=== PATIENT | male | born 1985 | race African-American/Black ===

== ENCOUNTER 2017-01-21 15:47 | Emergency (ER) | payer BC, MEDICAID ==
[~2017-01-21] VITALS: Ht 182.9 cm; Wt 109.1 kg
[~2017-01-21 15:47] MED LIST: NAPR550 PO
[2017-01-21 15:54] VITALS: BP 169/77; PULSE 63; RESP 18; TEMP 97.9; O2SAT 98
[2017-01-21 15:57] VITALS: O2SAT 98
[2017-01-21] MEDS ORDERED: SODIUM CHLORIDE 0.9% FLUSH 5 ML FLUSH IVF PRN (16:00)
[2017-01-21] MEDS ORDERED: LORazepam 2 MG/ML VIAL IV PUSH ONE (16:00)
--- NOTE | 2017-01-21 16:00 | PD ---
HPI . Chest pain Chief Complaint: Chest Pain Time Seen by Provider: 15:51 Travel History International Travel<30 days: No Contact w/Intl Traveler<30days: No Traveled to known affect area: No History of Present Illness HPI Patient presents with about a one-week history of chest pain. He reports that it has been continuous. It is associated with a numb sensation in his left shoulder and neck. He states he had some nausea and vomiting with it this morning. He has not had any shortness of breath. Patient reports that he could be under a lot of stress because his mother just . [facility] Past Medical History Immunizations Current: Yes Social History Alcohol Use: Yes (1 PINT EOD) Tobacco Use: Yes (1 PPD) Substance Use: No Allergies-Medications (Allergen,Severity, Reaction): Coded Allergies: No Known Allergies (Verified , 06/18/15) Reported Meds & Prescriptions Reported Meds & Active Scripts Active No Active Prescriptions or Reported Medications Review of Systems Except as stated in HPI: all other systems reviewed are Neg General / Constitutional: No: Fever, Chills HENT: No: Headaches Cardiovascular: Positive: Chest Pain or Discomfort Respiratory: No: Shortness of Breath Gastrointestinal: Positive: Nausea, Vomiting Psychiatric: Positive: Other (stress) Physical Exam Narrative GENERAL: Healthy-appearing man in no acute distress. SKIN: Warm and dry. HEAD: Atraumatic. Normocephalic. EYES: Pupils equal and round. ENT: No nasal bleeding or discharge. Mucous membranes pink and moist. NECK: Trachea midline. Neck is supple. CARDIOVASCULAR: Regular rate and rhythm. Heart sounds are normal. RESPIRATORY: No accessory muscle use. Lungs are clear with air movement throughout. Chest wall is nontender. GASTROINTESTINAL: Abdomen soft, non-tender, nondistended. MUSCULOSKELETAL: No obvious deformities. No edema. NEUROLOGICAL: Awake and alert. No obvious cranial nerve deficits. Motor grossly within normal limits. Normal speech. PSYCHIATRIC: Appropriate mood and affect; insight and judgment normal. Data Data Last Documented VS Vital Signs Date Time Temp Pulse Resp B/P Pulse Ox O2 Delivery O2 Flow Rate FiO2 01/21/17 15:57 98 Room Air 01/21/17 15:54 97.9 63 18 169/77 Orders Electrocardiogram (01/21/17 15:51) Basic Metabolic Panel (Bmp) (01/21/17 15:51) Ckmb (Isoenzyme) Profile (01/21/17 15:51) Complete Blood Count With Diff (01/21/17 15:51) Magnesium (Mg) (01/21/17 15:51) Prothrombin Time / Inr (Pt) (01/21/17 15:51) Act Partial Throm Time (Ptt) (01/21/17 15:51) Troponin I (01/21/17 15:51) Chest, Single Ap (01/21/17 15:51) Ecg Monitoring (01/21/17 15:51) Bilateral Bp Monitoring (01/21/17 15:51) Iv Access Insert/Monitor (01/21/17 15:51) Oximetry (01/21/17 15:51) Oxygen Administration (01/21/17 15:51) Sodium Chloride 0.9% Flush (Ns Flush) (01/21/17 16:00) Lorazepam Inj (Ativan Inj) (01/21/17 16:00) CKMB (01/21/17 16:13) CKMB% (01/21/17 16:13) Labs Laboratory Tests Test 01/21/17 16:13 White Blood Count 4.9 TH/MM3 Red Blood Count 5.07 MIL/MM3 Hemoglobin 13.9 GM/DL Hematocrit 42.7 % Mean Corpuscular Volume 84.1 FL Mean Corpuscular Hemoglobin 27.4 PG Mean Corpuscular Hemoglobin 32.5 % Concent Red Cell Distribution Width 13.0 % Platelet Count 255 TH/MM3 Mean Platelet Volume 8.4 FL Neutrophils (%) (Auto) 57.8 % Lymphocytes (%) (Auto) 30.0 % Monocytes (%) (Auto) 9.5 % Eosinophils (%) (Auto) 1.2 % Basophils (%) (Auto) 1.5 % Neutrophils # (Auto) 2.7 TH/MM3 Lymphocytes # (Auto) 1.5 TH/MM3 Monocytes # (Auto) 0.5 TH/MM3 Eosinophils # (Auto) 0.1 TH/MM3 Basophils # (Auto) 0.1 TH/MM3 CBC Comment DIFF FINAL Differential Comment Prothrombin Time 10.4 SEC Prothromb Time International 0.9 RATIO Ratio Activated Partial 27.2 SEC Thromboplast Time Sodium Level 140 MEQ/L Potassium Level 4.1 MEQ/L Chloride Level 103 MEQ/L Carbon Dioxide Level 28.5 MEQ/L Anion Gap 9 MEQ/L Blood Urea Nitrogen 20 MG/DL Creatinine 1.30 MG/DL Estimat Glomerular Filtration 79 ML/MIN Rate Random Glucose 88 MG/DL Calcium Level 9.2 MG/DL Magnesium Level 2.4 MG/DL Total Creatine Kinase 550 U/L Creatine Kinase MB 4.9 NG/ML Creatine Kinase MB % 0.9 % Troponin I LESS THAN 0.02 NG/ML MDM Medical Decision Making Medical Screen Exam Complete: Yes Emergency Medical Condition: Yes Medical Record Reviewed: Yes (patient has been seen here a couple of times for chest pain.) Interpretation(s) EKG shows a sinus rhythm with an early repolarization pattern. The EKG is unchanged from previous. Differential Diagnosis Differential diagnosis of chest pain includes but is not limited to musculoskeletal pain, pulmonary embolism, acute coronary syndrome, pneumonia, pleurisy Narrative Course Patient presents for evaluation of chest pain. CBC & BMP Diagram 01/21/17 16:13 Total CK is 550, CK-MB is 4.9 and the relative index is 0.9. His troponin is less than 0.02. Last Impressions Chest X-Ray 01/21/17 2257 Signed Impressions: Service Date/Time: Saturday, January 21, 2017 16:09 - CONCLUSION: No acute cardiopulmonary abnormality is identified. Ruy Weaver MD The chest x-ray was independently viewed by me. The patient's chest pain is likely stress related. Patient reports that the symptoms are improved with Ativan. Diagnosis Primary Impression: Chest pain Qualified Code: R07.9 - Chest pain, unspecified type Patient Instructions: Chest Pain (DC), General Instructions Scripts Lorazepam (Ativan)1 Mg Tab1 Mg PO Q4H PRN (for severe anxiety or dyspnea) #10 TAB Ref 0 Prov:Nery Geller MD 01/21/17 Disposition: 01 DISCHARGE HOME Condition: Stable Nery Geller MD Jan 21, 2017 15:59
--- NOTE | 2017-01-21 16:16 | RADHPO ---
EXAM DATE/TIME: 01/21/2017 16:09 [facility] COMPARISON: CHEST PA & LAT, June 18, 2015, 15:47. INDICATIONS : Chest pain for 1 week. MEDICAL HISTORY : None. SURGICAL HISTORY : None. ENCOUNTER: Initial ACUITY: 1 week PAIN SCORE: 4/10 LOCATION: Bilateral chest FINDINGS: Portable AP view of the chest demonstrates a normal-sized cardiac silhouette. No effusion, consolidat ion, or pneumothorax is visualized. The bones and soft tissues demonstrate no acute abnormality. CONCLUSION: No acute cardiopulmonary abnormality is identified. Ruy Weaver MD on January 21, 2017 at 16:14 Board Certified Radiologist. This report was verified electronically.
[2017-01-21 16:18] LABS: AUTOMATED NEUTROPHIL # 2.7 TH/MM3 (1.8-7.7); BASOPHIL # 0.1 TH/MM3 (0-0.2); BASOPHIL % 1.5 % (0.0-2.0); EOSINOPHIL # 0.1 TH/MM3 (0-0.4); EOSINOPHIL % 1.2 % (0.0-4.0); HEMATOCRIT 42.7 % (39.0-51.0); HEMO FLAGS DIFF FINAL; LYMPHOCYTE # 1.5 TH/MM3 (1.0-4.8); MEAN CELL VOLUME 84.1 FL (80.0-100.0); MEAN CORPUSCULAR HEMOGLOBIN 27.4 PG (27.0-34.0); MEAN CORPUSCULAR HGB CONC 32.5 % (32.0-36.0); MONO % 9.5 % (0.0-8.0); NEUT % 57.8 % (16.0-70.0); PLATELET COUNT 255 TH/MM3 (150-450); RED BLOOD COUNT 5.07 MIL/MM3 (4.50-5.90); WHITE BLOOD COUNT 4.9 TH/MM3 (4.0-11.0)
[2017-01-21 16:28] LABS: CHLORIDE 103 MEQ/L (98-107); SODIUM (NA) 140 MEQ/L (136-145)
[2017-01-21 16:31] LABS: ANION GAP 9 MEQ/L (5-15); BICARBONATE 28.5 MEQ/L (21.0-32.0); BLOOD UREA NITROGEN 20 MG/DL (7-18); MAGNESIUM 2.4 MG/DL (1.5-2.5)
[2017-01-21 16:32] LABS: APTT (PATIENT) 27.2 SEC (24.3-30.1); INTERNATIONAL NORMALIZED RATIO 0.9 RATIO; PROTHROMBIN TIME - PATIENT 10.4 SEC (9.8-11.6)
[2017-01-21 16:34] LABS: GLOMERULAR FILTRATION RATE 79 ML/MIN (>89)
[2017-01-21 16:38] LABS: CREATINE KINASE 550 U/L (39-308)
[2017-01-21 16:43] LABS: POTASSIUM 4.1 MEQ/L (3.5-5.1)
[2017-01-21 16:55] LABS: CKMB 4.9 NG/ML (0.5-3.6)
[2017-01-21] MEDS ORDERED: LORA-474 PO (17:12)
[2017-01-21 17:29] VITALS: BP 142/76
--- NOTE | 2017-01-22 22:25 | EKG ---
Date Performed: 01/21/2017 Time Performed: 15:51:52 PTAGE: 31 years EKG: Sinus rhythm Diffuse NS ST elevation Normal ECG PREVIOUS TRACING : 06/18/2015 15.32 Compared to prior tracing no significant change DOCTOR: Natanael Gabriel Interpretating Date/Time 01/22/2017 22:24:26
== END 2017-01-21 17:31 | disposition home or self-care (01) ==
LOC: PHED 15:47
DX: R07.9 Chest pain, unspecified (principal); R20.0 Anesthesia of skin; R11.2 Nausea with vomiting, unspecified; F17.200 Nicotine dependence, unspecified, uncomplicated
CPT/HCPCS: 71010; 80048; 82550; 82552; 83735; 84484; 85025; 85610; 85730; 93005; 96374; 99285; J2060